=== PATIENT | male | born 1975 | race Hispanic/Latino ===

== ENCOUNTER 2017-01-24 18:56 | Emergency (ER) | payer MEDICAID ==
[2017-01-24 19:06] VITALS: TEMP 97.8
--- NOTE | 2017-01-24 19:46 | C.PDOC ---
History Of Present Illness 41 yr old male presents to the ER for evaluation of pain to the upper left and lateral incisor for the past 4 days. Patient reports he was seen at another ER and was told to follow up with the dentist but did not provide him with any pain medication prescription or antibiotics. Patient states over the past few days he has noticed increase swelling and pain to the tooth and cheek area. Denies fever, chills, throat swelling, throat pain, neck pain or trauma. Time Seen by Provider: 01/24/17 19:09 Chief Complaint (Nursing): Dental Pain History Per: Patient History/Exam Limitations: no limitations Onset/Duration Of Symptoms: Days (4) Pain Scale Rating Of: 6 Quality: Positive for: "Pain" Recent travel outside of the [place]: No Past Medical History Reviewed: Historical Data, Nursing Documentation, Vital Signs Vital Signs: Last Vital Signs Temp 97.8 F 01/24/17 19:02 Pulse 72 01/24/17 20:12 Resp 18 01/24/17 20:12 BP 119/69 01/24/17 20:12 Pulse Ox 98 01/24/17 20:12 - Medical History PMH: No Chronic Diseases Family History: States: No Known Family Hx - Social History Hx Alcohol Use: Yes Hx Substance Use: No - Immunization History Hx Tetanus Toxoid Vaccination: Yes Hx Influenza Vaccination: No Hx Pneumococcal Vaccination: No Review Of Systems Except As Marked, All Systems Reviewed And Found Negative. Constitutional: Negative for: Fever, Chills ENT: Positive for: Other ((+) Pain to the upper and lateral incisor). Negative for: Throat Pain, Throat Swelling Musculoskeletal: Negative for: Neck Pain Physical Exam - Physical Exam Appears: Non-toxic, No Acute Distress Skin: Warm, Dry, No Rash Head: Atraumatic, Normacephalic Eye(s): bilateral: Normal Inspection, PERRL, EOMI Nose: Normal Oral Mucosa: Moist Teeth: Tender To Palpation (To tooth 10 & 11, with swelling to the area) Gingiva: Swelling (to the left upper lip and ) Throat: Normal, No Erythema, No Exudate, No Drooling Neck: Normal, Normal ROM, Supple Neurological/Psych: Oriented x3, Normal Speech, Normal Motor Gait: Steady ED Course And Treatment O2 Sat by Pulse Oximetry: 98 (on Ra) Pulse Ox Interpretation: Normal Medical Decision Making Medical Decision Making: PLAN: * Amoxicillin PO * Motrin PO PROGRESS NOTE: * Old records reviewed, no previous records. Patient was instructed to follow up with the dentist within 1-2 days without. Disposition - Disposition Referrals: Francesca Tan DMD [Staff Provider] - Disposition: HOME/ ROUTINE Disposition Time: 19:46 Condition: GOOD Additional Instructions: Follow up with the dentist on Friday as scheduled. Return if worsened. 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 - Scribe Statement The provider has reviewed the documentation as recorded by the Scribe Consuelo Sexton All medical record entries made by the Scribe were at my direction and personally dictated by me. I have reviewed the chart and agree that the record accurately reflects my personal performance of the history, physical exam, medical decision making, and the department course for this patient. I have also personally directed, reviewed, and agree with the discharge instructions and disposition.
[2017-01-24 20:12] VITALS: BP 119/69; PULSE 72; RESP 18; O2SAT 98
== END 2017-01-24 20:13 | disposition home or self-care (01) ==
LOC: C.ER 18:56
DX: K04.7 Periapical abscess without sinus (principal); K02.9 Dental caries, unspecified

== ENCOUNTER 2017-01-25 13:28 | Emergency (ER) | payer MEDICAID ==
[2017-01-25 13:47] VITALS: RESP 16
--- NOTE | 2017-01-25 15:09 | C.PDOC ---
History Of Present Illness 41 y/o male presents to the ED c/o a dog bite to the left thumb [employer]. The patient was walking his dog and a stray dog approached him and his dog. The patient petted the stray dog and the stray bitten him on the left thumb. The patient denies numbness, weakness. 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) Quality Of Symptoms: Painful Severity: Mild Pain Scale Rating Of: 3 Past Medical History Reviewed: Historical Data, Nursing Documentation, Vital Signs Vital Signs: Last Vital Signs Temp 98.2 F 01/25/17 16:00 Pulse 80 01/25/17 16:00 Resp 16 01/25/17 16:00 BP 112/70 01/25/17 16:00 Pulse Ox 99 01/25/17 18:53 Surgical History: No Surg Hx Family History: States: No Known Family Hx - Social History Hx Alcohol Use: Yes Hx Substance Use: No - Immunization History Hx Tetanus Toxoid Vaccination: Yes Hx Influenza Vaccination: No Hx Pneumococcal Vaccination: No Review Of Systems Except As Marked, All Systems Reviewed And Found Negative. Constitutional: Negative for: Fever Musculoskeletal: Positive for: Other (dog bite on the left pollex and is able to have movement) Skin: Positive for: Other (2 punctured wounds ). Negative for: Rash, Lesions, Bruising Neurological: Negative for: Weakness, Numbness Physical Exam - Physical Exam Appears: Well, Non-toxic, No Acute Distress Skin: Warm, Dry, Other ( 2 punctured wounds on the left thumb) Head: Atraumatic, Normacephalic Eye(s): bilateral: PERRL, EOMI Extremity: Normal ROM, Capillary Refill (<2sec.), No Deformity, No Swelling Neurological/Psych: Oriented x3, Normal Speech, Normal Motor, Normal Sensation ED Course And Treatment O2 Sat by Pulse Oximetry: 99 (RA) Pulse Ox Interpretation: Normal Reassessment Condition: Improved Medical Decision Making Medical Decision Making: The patient was administered a Adacel, Rabies Immune Globulin (Imgam), and Rabavert vaccine injection. AMX (for mouth infection) switched to Augmentin. Disposition Counseled Patient/Family Regarding: Diagnosis, Need For Followup, Rx Given - Disposition Referrals: Non [facility] Provider, [Non-Staff] - Disposition: HOME/ ROUTINE Disposition Time: 15:20 Condition: GOOD Additional Instructions: RETURN TO ED FOR RABIES VACCINATIONS ON 01/28/17, 02/01/17 AND 02/08/17. STOP AMOXICILLIN. IF WOUND SWELLING, WORSENING OR REDNESS OR DISCHARGE DEVELOP RETURN TO ED. 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 MD/DO has examined the patient and agrees with the treatment plan. - Scribe Statement Ade Morrow All medical record entries made by the Tomibkyra were at my direction and personally dictated by me. I have reviewed the chart and agree that the record accurately reflects my personal performance of the history, physical exam, medical decision making, and the department course for this patient. I have also personally directed, reviewed, and agree with the discharge instructions and disposition.
[2017-01-25] MEDS ORDERED: RABIES VACCINE 2.5 U PDR IM ONE (15:11)
[2017-01-25] MEDS ORDERED: Rabies Immune Globulin 150 INTLU/ML VIAL IM ONE (15:11)
[2017-01-25] MEDS ORDERED: Tetanus/Diphtheria Toxoids 0.5 ml Syringe IM ONE (15:23)
[2017-01-25 16:02] VITALS: BP 112/70; PULSE 80; TEMP 98.2
[2017-01-25 18:50] VITALS: O2SAT 99
== END 2017-01-25 16:00 | disposition home or self-care (01) ==
LOC: C.ER 13:28
DX: S61.032A Puncture wound without foreign body of left thumb without damage to nail, initial encounter (principal); W54.0XXA Bitten by dog, initial encounter; Y93.K1 Activity, walking an animal

== ENCOUNTER 2017-01-28 12:51 | Emergency (ER) | payer MEDICAID ==
[2017-01-28 12:56] VITALS: BP 108/72; PULSE 82; RESP 18; TEMP 97.5; O2SAT 100; BMI 18.4
[2017-01-28] MEDS ORDERED: RABIES VACCINE 2.5 U PDR IM ONE (13:22)
--- NOTE | 2017-01-28 13:47 | C.PDOC ---
History Of Present Illness 41yo male reports he was bitten on his left thumb by a stray dog on 01/25 when he had the 1st dose of Rabies vaccine and rabies immunoglobulin. Patient returns today for the second dose of the vaccine. He states he has been taking his antibiotics as well as using the antibiotic cream as prescribed. Patient denies any other medical complaints. Time Seen by Provider: 01/28/17 13:01 Chief Complaint (Nursing): Rabies Vaccine Series History Per: Patient History/Exam Limitations: no limitations Onset/Duration Of Symptoms: Days (3) Current Symptoms Are (Timing): Still Present Reports Recently: Seen In ED Past Medical History Reviewed: Historical Data, Nursing Documentation, Vital Signs Vital Signs: Last Vital Signs Temp 97.5 F L 01/28/17 12:56 Pulse 82 01/28/17 12:56 Resp 18 01/28/17 12:56 BP 108/72 01/28/17 12:56 Pulse Ox 100 01/28/17 13:57 - Medical History PMH: No Chronic Diseases Surgical History: No Surg Hx Family History: States: No Known Family Hx - Social History Hx Alcohol Use: No Hx Substance Use: No - Immunization History Hx Tetanus Toxoid Vaccination: Yes Hx Influenza Vaccination: No Hx Pneumococcal Vaccination: No Review Of Systems Skin: Positive for: Other (dog bite to left thumb) Physical Exam - Physical Exam Appears: Non-toxic, No Acute Distress Skin: Other (2 scratches noted to lateral left thumb) Extremity: No Tenderness, No Deformity, No Swelling ED Course And Treatment O2 Sat by Pulse Oximetry: 100 (RA) Pulse Ox Interpretation: Normal Medical Decision Making Medical Decision Making: Plan: -- Rabies vaccine 2nd dose Disposition Counseled Patient/Family Regarding: Diagnosis, Need For Followup - Disposition Disposition: HOME/ ROUTINE Disposition Time: 13:56 Condition: STABLE Additional Instructions: Return to ED on 02/01 and 02/08 for remaining 2 doses of rabies vaccine. 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 - Scribe Statement The provider has reviewed the documentation as recorded by the Johnny Schultz Provider Attestation All medical record entries made by the Johnny were at my direction and personally dictated by me. I have reviewed the chart and agree that the record accurately reflects my personal performance of the history, physical exam, medical decision making, and the department course for this patient. I have also personally directed, reviewed, and agree with the discharge instructions and disposition.
== END 2017-01-28 14:20 | disposition home or self-care (01) ==
LOC: C.ER 12:51
DX: Z23 Encounter for immunization (principal)

== ENCOUNTER 2017-02-01 14:00 | Emergency (ER) | payer MEDICAID ==
[2017-02-01 14:00] VITALS: BMI 18.4
[2017-02-01 14:07] VITALS: BP 111/73; PULSE 80; RESP 16; TEMP 97.6; O2SAT 100
[2017-02-01] MEDS ORDERED: RABIES VACCINE 2.5 U PDR IM ONE (14:57)
--- NOTE | 2017-02-01 15:20 | C.PDOC ---
History Of Present Illness A 41 year old male, who denies any significant past medical history, presents to the emergency department, for a repeat rabies vaccine. The patient denies any other complaints at this time. Time Seen by Provider: 02/01/17 14:16 Chief Complaint (Nursing): Rabies Vaccine Series Past Medical History Reviewed: Historical Data, Nursing Documentation, Vital Signs Vital Signs: Last Vital Signs Temp 97.6 F 02/01/17 14:05 Pulse 80 02/01/17 14:05 Resp 16 02/01/17 14:05 BP 111/73 02/01/17 14:05 Pulse Ox 100 02/01/17 15:20 Family History: States: No Known Family Hx - Social History Hx Alcohol Use: No Hx Substance Use: No - Immunization History Hx Tetanus Toxoid Vaccination: Yes Hx Influenza Vaccination: No Hx Pneumococcal Vaccination: No Review Of Systems Except As Marked, All Systems Reviewed And Found Negative. Constitutional: Negative for: Fever Cardiovascular: Negative for: Chest Pain Skin: Negative for: Rash, Lesions, Jaundice, Bruising Neurological: Negative for: Weakness, Numbness, Confusion Physical Exam - Physical Exam Appears: Well, No Acute Distress Skin: Normal Color, Warm, Dry Head: Atraumatic, Normacephalic Eye(s): bilateral: Normal Inspection, PERRL, EOMI Nose: Normal Throat: Normal Neck: Normal Cardiovascular: Rhythm Regular Respiratory: Normal Breath Sounds Gastrointestinal/Abdominal: Normal Exam Back: Normal Inspection Extremity: Normal ROM ED Course And Treatment O2 Sat by Pulse Oximetry: 100 Disposition - Disposition Referrals: [facility] [Outside] Disposition: HOME/ ROUTINE Disposition Time: 15:19 Condition: GOOD Additional Instructions: Follow up with the medical doctor within 1-2 days. Return if worsened. Instructions: Rabies Vaccine (By injection) Forms: [employer] (French) - Clinical Impression Clinical Impression: Rabies vaccination - Scribe Statement The provider has reviewed the documentation as recorded by the Scribe Aundrea Nowak All medical record entries made by the Scribe were at my direction and personally dictated by me. I have reviewed the chart and agree that the record accurately reflects my personal performance of the history, physical exam, medical decision making, and the department course for this patient. I have also personally directed, reviewed, and agree with the discharge instructions and disposition.
== END 2017-02-01 15:34 | disposition home or self-care (01) ==
LOC: C.ER 14:00
DX: Z23 Encounter for immunization (principal)

== ENCOUNTER 2017-02-08 12:50 | Emergency (ER) | payer MEDICAID ==
[2017-02-08 12:50] VITALS: BMI 18.4
[2017-02-08 13:22] VITALS: BP 111/63; PULSE 101; RESP 18; TEMP 97.5; O2SAT 96
[2017-02-08] MEDS ORDERED: RABIES VACCINE 2.5 U PDR IM ONE (13:43)
--- NOTE | 2017-02-08 13:52 | C.PDOC ---
History Of Present Illness 41 yr old male presents to the ER for last dose of rabies vaccine. Patient was initially seen on 01/25 s/p being bit by a stray dog to left thumb. Patient denies fever, chills, wound draining, increase pain or any other new changes. Ambulate to Ed for evaluation, not in any apparent distress. Time Seen by Provider: 02/08/17 13:26 Chief Complaint (Nursing): Rabies Vaccine Series History Per: Patient History/Exam Limitations: no limitations Onset/Duration Of Symptoms: Days Past Medical History Reviewed: Historical Data, Nursing Documentation, Vital Signs Vital Signs: Last Vital Signs Temp 97.5 F L 02/08/17 13:19 Pulse 101 H 02/08/17 13:19 Resp 18 02/08/17 13:19 BP 111/63 02/08/17 13:19 Pulse Ox 96 02/09/17 17:59 Family History: States: No Known Family Hx - Social History Hx Alcohol Use: No Hx Substance Use: No - Immunization History Hx Tetanus Toxoid Vaccination: Yes Hx Influenza Vaccination: No Hx Pneumococcal Vaccination: No Review Of Systems Except As Marked, All Systems Reviewed And Found Negative. Constitutional: Negative for: Fever, Chills Cardiovascular: Negative for: Chest Pain Respiratory: Negative for: Shortness of Breath Gastrointestinal: Negative for: Nausea, Vomiting Neurological: Negative for: Weakness, Numbness Physical Exam - Physical Exam Appears: Non-toxic, No Acute Distress Skin: Warm, Dry, No Rash, Other (no evidence of lesion to left thumb, well healed puncture wound. No cellulitis, no wound draining.) Neck: Supple Chest: Symmetrical, No Tenderness Cardiovascular: Rhythm Regular, No Murmur Respiratory: No Rales, No Rhonchi, No Stridor, No Wheezing Gastrointestinal/Abdominal: Soft, No Tenderness Extremity: Normal ROM, No Deformity, No Swelling Neurological/Psych: Oriented x3, Normal Speech, Normal Motor, Normal Sensation, Normal Reflexes ED Course And Treatment O2 Sat by Pulse Oximetry: 96 (RA) Pulse Ox Interpretation: Normal Progress Note: On re-eavl, pt is afebrile, hemodynamicaly stable. Non-toxic. Pt received last dose of rabies vaccination today. Pt advised and ref. to f/u with PMD as need. Medical Decision Making Medical Decision Making: PLAN: * Rabies Vaccine IM Disposition Counseled Patient/Family Regarding: Diagnosis, Need For Followup - Disposition Referrals: [facility] [Outside] Disposition: HOME/ ROUTINE Disposition Time: 13:51 Condition: STABLE Additional Instructions: Follow up with PMD as need for further evaluation and treatment. return to ED if any new changes. 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 - Scribe Statement The provider has reviewed the documentation as recorded by the Scribe Consuelo Sexton All medical record entries made by the Scribe were at my direction and personally dictated by me. I have reviewed the chart and agree that the record accurately reflects my personal performance of the history, physical exam, medical decision making, and the department course for this patient. I have also personally directed, reviewed, and agree with the discharge instructions and disposition.
== END 2017-02-08 14:16 | disposition home or self-care (01) ==
LOC: C.ER 12:50
DX: Z23 Encounter for immunization (principal)